=== PATIENT | female | born 1990 ===

== ENCOUNTER 2017-02-06 17:37 | Inpatient (IN) ==
[2017-02-06] MEDS ORDERED: MEPERIDINE 50 MG/1 ML VIAL IV PRN (18:07)
[2017-02-06] MEDS ORDERED: ONDANSETRON 4 MG/2 ML VIAL IV PRN ×2 (18:07→22:57)
[2017-02-06] MEDS ORDERED: LACTATED RINGERS 500 ML IV PRN (18:07)
[2017-02-06] MEDS ORDERED: BUTORPHANOL 2 MG/ML VIAL IV PRN (18:07)
[2017-02-06] MEDS ORDERED: AMPICILLIN INJ 2,000 MG in SODIUM CHLORIDE 0.9% 100 ML IV ONE (18:11)
[2017-02-06] MEDS ORDERED: AMPICILLIN 2,000 MG VIAL ONE (18:11)
[2017-02-06] MEDS ORDERED: SODIUM CHLORIDE 0.9% 100 ML IV ONE (18:11)
[2017-02-06] MEDS: LACTATED RINGERS 1,000 ML IV SCH ×2 (18:11→18:39)
[2017-02-06] MEDS ORDERED: ePHEDrine 50 MG/ML AMP IV PRN (18:19)
[2017-02-06] MEDS ORDERED: diphenhydrAMINE 50 MG/1 ML VIAL IV PRN (18:19)
[2017-02-06] MEDS ORDERED: fentaNYL 2 MCG/ROPIV 0.2% EPID 150 ML EPIDURAL SCH (18:19)
[2017-02-06] MEDS ORDERED: PROMETHAZINE 25 MG/1 ML VIAL IM ONE (18:19)
[2017-02-06] MEDS ORDERED: CITRIC ACID/SODIUM CITRATE 30 ML UDCUP PO ONE (18:19)
[2017-02-06] MEDS ORDERED: FAMOTIDINE 20 MG/2 ML VIAL IV ONE (18:19)
[2017-02-06] MEDS ORDERED: hydrOXYzine HCL 25 MG/1 ML VIAL IM PRN (18:19)
[2017-02-06 18:37] LABS: Basophils % 0.3 % (0.0-0.8); Eosinophils # 0.1 10*3/uL (0.0-0.87); Eosinophils % 0.8 % (0.00-10.9); Hematocrit 27.3 VOL% (35.7-47.0); Hemoglobin 8.1 GM/DL (12.0-16.0); Immature Granulocytes % 0.3 %; Immature Granulocytes Absolute 0.02 #; Lymphocytes # 2.3 10*3/uL (1.4-4.0); Lymphocytes % 31.4 % (21.3-54.2); Mean Corpuscular HGB Conc 29.7 GM/DL (32-36); Mean Corpuscular Hemoglobin 18 PG (27-34); Mean Corpuscular Volume 61.8 FL (87-102); Mean Platelet Volume 9.6 FL (9.6-12.0); Monocytes # 0.4 10*3/uL (0.11-0.8); Monocytes % 5.6 % (1.7-12.7); Neutrophils # 4.4 10*3/uL (1.4-7.4); Neutrophils % 61.6 % (38.7-73.9); Platelet Count 268 T/CUMM (130-400); Red Blood Count 4.42 MC/CUMM (3.8-5.5); Red Cell Distribution Width 16.1 % (9.3-17.3); White Blood Count 7.2 T/CUMM (4-12)
[2017-02-06 18:42] LABS: Apearance,Urine CLEAR (Clear); Bilirubin,Urine Negative (Negative); Blood, Urine Small mg/dL (Negative); Glucose,Urine (UA) Negative (Negative); Ketones,Urine Negative (Negative); Mucus,Urine Occasional /LPF (Occasional); Nitrite,Urine Negative (Negative); Protein,Urine Negative; RBC,Urine 1 /HPF (0-4); Squamous Epithelial Cell,Urine Occasional /HPF (0-10); Urine Color Yellow (Yellow); Urine Specific Gravity 1.024 (1.001-1.035); WBC,Urine <1 /HPF (0-6)
[2017-02-06 18:56] LABS: Alanine Aminotransferase 13 U/L (13-56); Albumin 2.9 G/DL (3.4-5.0); Alkaline Phosphatase 210 U/L (45-117); Aspartate Amino Transferase 18 U/L (0-37); Bilirubin,Total < 0.39 MG/DL (0.2-1.0); Blood Urea Nitrogen 16 MG/DL (7-18); Calcium 8.4 MG/DL (8.5-10.1); Glucose 70 MG/DL (74-106); Osmolality,Calculated 275.5 MOS/KG (273-304); Potassium 4.1 MMOL/L (3.5-5.1); Sodium 139 MMOL/L (136-145); Total Protein 7.1 G/DL (6.4-8.3); Uric Acid 4.5 MG/DL (2.6-6.0)
[2017-02-06] MEDS ORDERED: OXYTOCIN/LR 30 UNIT/1,000 ML BAG IV ONE (22:11)
[2017-02-06] MEDS ORDERED: OXYTOCIN 10 UNIT/ML VIAL ONE (22:27)
[2017-02-06] MEDS ORDERED: AMPICILLIN INJ 1,000 MG in SODIUM CHLORIDE 0.9% 100 ML IV SCH (22:30)
--- NOTE | 2017-02-06 22:54 | OB/GYN History & Physical ---
History of Present Illness Chief complaint: Active labor, EDC is 03/08/2017 at 35 weeks and 5 days. History of present illness: Ms. Haq is a 26 year old female 26-year-old 3 para 2 EDC is 03/08/2017 presented to labor and delivery approximately 6 cm dilated 90% effaced and -2 station. Fetus is very active heart tones are category 1. Abdomen is soft occasional uterine contractions. Patient will be admitted routine labs be also drawn epidural also be administered when appropriate. Home Medications Medication Instructions Recorded Confirmed Type No Known Home Medications [No 02/06/17 02/06/17 History Known Home Medications] Allergies Allergy/AdvReac Type Severity Reaction Status Date / Time No Known Allergies Allergy Verified 07/27/15 10:45 Medical,Surgical,& Family Hx - Medical History Psychological: No history of: Anxiety Disorders Neurology: No history of: Brain Aneurysm, Cerebral Hemorrhage, Cerebrovascular Accident , Cerebral Palsy, Dementia, Migraine, Multiple Sclerosis, Parkinson's Disease, Peripheral Neuropathy, Seizures, TIA, Vertigo, Neurologocal Cancer Rheumatology: No history of;: Fibromyalgia, Gout, Myasthenia Gravis, Rheumatoid Arthritis, Rheumatological Problems Respiratory: No history of: Asthma, Bronchitis, COPD, Intubation, Obstructive Sleep Apnea , Pulmonary Embolism, Pulmonary Hypertension, Pneumonia, Lung Cancer, Respiratory Problems Musculoskeletal: No history of: Amputation, Back/Neck Problems, Degenerative Disk Disease, Herniated Disk, Osteoporosis, Musculoskeletal Cancer, Musculoskeletal Problems Reproductive: No history of: Ectopic , Complication Other: No history of: Anesthesia Reactions - Surgical History Cardiac Surgeries: Patient Denies: Cardiac Catheterization Thoracic Surgeries: Patient denies;: Organ Transplant, Lobectomy Neurologic Surgeries: Patient denies: Brain Aneurysm, Cerebral Hemorrhage, Neurologic Surgery HEENT Surgeries: Patient denies: Thyroid Surgery, Tonsilectomy & Adenoidectomy Abdominal Surgeries: Patient denies: Abdominal Surgery, Appendectomy, Cholecystectomy, Colonoscopy , Gastric Bypass Surgery, EGD, Hernia Repair Reproductive Surgeries: Patient denies;: Breast Surgery, Section, Genitourinary Surgery, Gynecologic Surgery Orthopedic Surgeries: Patient denies;: Implanted Devices, Orthopedic Surgery, Spinal Surgery, Total Hip Replacement, Total Knee Replacement - Family History Family History: Reports;: Family Diabetes Denies;: Family Anesthesia Reaction, Family Cancer, Family Heart Disease, Family Hypertension, Family Psychiatric Problems, Family Stroke - Social History Smoking Status: Never smoker Frequency of Alcohol Use: None 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 - Constitutional Vitals: Vital Signs Temp Pulse Resp BP 02/06/17 20:00 98.1 F 73 17 105/59 General appearance: no acute distress - Antepartum / Post Antepartum Exam Cervix - Dilatation: 5-6 cm - Head Head exam: Present: normal inspection - Eye Eye exam: Present: EOMI Pupils: Present: VIVI - ENT ENT exam: Present: normal exam - Neck Neck exam: Present: normal inspection - Respiratory Respiratory exam: Present: clear to auscultation bilaterally - Breast Breasts: as per HPI Menstruation: as per HPI - Cardiovascular Cardiovascular exam: Present: regular rate and rhythm - GI/Abdominal GI/Abdominal exam: Present: normal bowel sounds - Extremities Exam Extremities exam: Present: normal inspection - Back Exam Back exam: Present: normal inspection - Neurological Exam Neurological exam: Present: alert, oriented X3 - Psychiatric Psychiatric exam: Present: normal affect - Skin Skin exam: Present: normal color Assessment and Plan (1) Active labor at term Status: Acute Assessment and plan: Anticipate , prematurity, 36 weeks. Current Visit: No Results - Labs CBC & BMP: 02/06/17 18:15 02/06/17 18:15
[2017-02-06] MEDS ORDERED: LANOLIN 50% CREAM 0.3 OZ TUBE TOP PRN (22:57)
[2017-02-06] MEDS ORDERED: WITCH HAZEL PADS 100/JAR TOP PRN (22:57)
[2017-02-06] MEDS ORDERED: MEASLES/MUMPS/RUBELLA VACCINE 0.5 ML VIAL SUBCUT ONE (22:57)
[2017-02-06] MEDS ORDERED: IBUPROFEN 800 MG TABLET PO PRN (22:57)
[2017-02-06] MEDS ORDERED: HYDROCORTISONE 2.5% RECTAL CREAM 30 GM TUBE TOP PRN (22:57)
[2017-02-06] MEDS ORDERED: BISACODYL 10 MG SUPP RECTAL PRN (22:57)
[2017-02-06] MEDS ORDERED: DIPH/TET/ACEL PERT BOOSTER VACCINE 0.5 ML VIAL IM ONE (22:57)
[2017-02-06] MEDS ORDERED: RHO(D) IMMUNE GLOBULIN 300 MCG SYRINGE IM ONE (22:57)
[2017-02-06] MEDS ORDERED: ACETAMINOPHEN 325 MG TABLET PO PRN (22:57)
[2017-02-06] MEDS ORDERED: OXYTOCIN/LR 20 UNIT/1,000 ML BAG IV ONE (22:57)
[2017-02-06] MEDS ORDERED: BENZOCAINE 20%/MENTHOL 0.5% SPRAY 56 GM CAN TOP PRN (22:57)
[2017-02-06] MEDS ORDERED: oxyCODONE/ACETAMINOPHEN 5-325 MG TABLET PO PRN ×2 (22:57)
--- NOTE | 2017-02-06 22:57 | Event Note ---
Delivery note Stage I Active labor admitted at 6 cm dilated Epidural anesthetic Spontaneous rupture membranes heart tones category 1 Beta strep positive IV ampicillin Stage II Spontaneous delivery Female infant weight 6 pounds Delivery time was 2239 pm Apgars were 7 and 9 Cord blood and cord gas obtained Stage III Spontaneous delivery of the placenta No lacerations noted Blood loss was 250 3 cord vessels Mother stable
[2017-02-06 23:09] LABS: Cord Arterial Blood HCO3 21.7 MMOL/L
[2017-02-06 23:10] LABS: Cord Venous Blood HCO3 23.9 MMOL/L; Cord Venous Blood PCO2 40.7 MMHG; Cord Venous Blood PO2 32.1 MMHG
[2017-02-07 06:41] LABS: Basophils % 0.2 % (0.0-0.8); Eosinophils % 0.4 % (0.00-10.9); Hematocrit 26.3 VOL% (35.7-47.0); Hemoglobin 7.8 GM/DL (12.0-16.0); Immature Granulocytes % 0.3 %; Immature Granulocytes Absolute 0.03 #; Lymphocytes # 2.3 10*3/uL (1.4-4.0); Lymphocytes % 24.5 % (21.3-54.2); Mean Corpuscular HGB Conc 29.7 GM/DL (32-36); Mean Corpuscular Hemoglobin 18 PG (27-34); Mean Corpuscular Volume 61.3 FL (87-102); Mean Platelet Volume 9.9 FL (9.6-12.0); Monocytes # 0.5 10*3/uL (0.11-0.8); Monocytes % 5.5 % (1.7-12.7); Neutrophils # 6.6 10*3/uL (1.4-7.4); Neutrophils % 69.1 % (38.7-73.9); Platelet Count 194 T/CUMM (130-400); Red Blood Count 4.29 MC/CUMM (3.8-5.5); White Blood Count 9.5 T/CUMM (4-12)
--- NOTE | 2017-02-07 07:07 | Anesthesia Post-Op ---
Anesthesia Post OP - Post Ansesthetic Evaluation Patient seen in post op: Yes Resp: within normal limits CV: within normal limits Mental: within normal limits Temp: within normal limits [id number]: within normal limits Nausea and Vomiting: within normal limits Pain: within normal limits
[2017-02-07] MEDS: DOCUSATE SODIUM 100 MG CAPSULE PO SCH ×2 (08:41→20:58)
[2017-02-07] MEDS: FERROUS SULFATE 325 MG TABLET PO SCH ×3 (08:41→20:58)
--- NOTE | 2017-02-07 14:52 | OB/GYN Progress Note ---
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 Bonding well with infant. 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 - Constitutional Vitals: Vital Signs Temp Pulse Resp BP Pulse Ox 02/07/17 11:32 98.2 F 71 20 91/54 98 02/07/17 07:27 97.1 F L 58 L 18 134/74 98 02/07/17 06:00 18 02/07/17 03:15 97.6 F 70 18 93/61 98 02/07/17 02:15 65 18 115/62 02/07/17 01:15 63 18 120/80 02/07/17 00:45 62 18 119/68 02/07/17 00:15 97.3 F L 54 L 20 117/83 98 02/07/17 00:00 97.7 F 60 16 149/57 02/06/17 20:00 98.1 F 73 17 105/59 General appearance: no acute distress - Antepartum / Post Post Exam Breast: bilateral: normal Abdomen obstetrics: Present: bowel sounds normal Vagina: Present: discharge (Light lochia rubra) Uterus exam: Present: enlarged (Fundus firm midline) Anus/Rectum: Present: normal perianal skin - Respiratory Respiratory exam: Present: clear to auscultation bilaterally - Cardiovascular Cardiovascular exam: Present: regular rate and rhythm - GI/Abdominal GI/Abdominal exam: Present: normal bowel sounds, soft - Extremities Exam Extremities exam: Present: normal inspection - Neurological Exam Neurological exam: Present: alert, oriented X3 - Psychiatric Psychiatric exam: Present: normal affect, normal mood - Skin Skin exam: Present: normal color, warm Results - Labs CBC & BMP: 02/07/17 06:23 02/06/17 18:15
[2017-02-07 16:08] LABS: Hematocrit 23.3 VOL% (35.7-47.0); Hemoglobin 6.9 GM/DL (12.0-16.0)
[2017-02-07] MEDS ORDERED: SODIUM CHLORIDE 0.9% 250 ML IV PRN (16:21)
[2017-02-08 06:42] LABS: Hematocrit 29.7 VOL% (35.7-47.0)
[2017-02-08 06:51] LABS: Hemoglobin 9.1 GM/DL (12.0-16.0)
[2017-02-08] MEDS: FERROUS SULFATE 325 MG TABLET PO SCH (08:46)
[2017-02-08] MEDS: DOCUSATE SODIUM 100 MG CAPSULE PO SCH (08:46)
--- NOTE | 2017-02-08 12:14 | Discharge Summary ---
Hospital Course - Hospital Course Hospital Course: Ms. Haq presented to the labor department in active labor. She subsequently delivered a viable infant with no complications. She is followed a normal course and she has done well. Her bleeding is minimal with no odor. Her hemoglobin was low however the patient did not wish to take blood at this time. She chose to do iron therapy. She denies any dizziness or shortness of breath. She is bonding well with her infant. Her bleeding is minimal with no odor. Her vital signs are stable. She will be discharged home prescriptions for pain, iron, and a follow-up appointment in our office. Diagnosis - Discharge Diagnosis (1) Active labor at term Status: Acute (2) Vaginal delivery Status: Acute Specialty Discharge - Follow Up or Referrals Follow up with: Genaro Carranza MD [Physician] - 03/22/17 10:00 am (6 WEEKS ) Discharge Plan - Discharge Data Disposition: Disch To Home/Self Care Condition at Discharge: Stable Discharge Diet: regular diet Activity: resume usual activities as tolerated Hygiene: may shower Weight Bearing at Discharge: weight bear as tolerated Driving: no restrictions Contact your physician if you experience:: fever over 101, pain uncontrolled by pain medications - Discharge Medications New Acetamin/Codeine 300-30 Tab [Tylenol/Codeine #3] 2 tablet PO Q4H PRN #30 tablet PRN Reason: Pain Mild To Moderate (1-7) Ferrous Sulfate Tab [Feosol Original Tab] 325 mg PO TID #90 tablet Ibuprofen Tab [Motrin Tab] 800 mg PO Q6H PRN #30 tablet PRN Reason: Pain Moderate (4-7) - Follow Up or Referral Follow Up: Genaro Carranza MD [Physician] - 03/22/17 10:00 am (6 WEEKS ) - Forms/Instructions Instructions: Perineal Care (DC), Vaginal Delivery (DC), Bleeding (DC) Exam - Constitutional Vitals: Period Temp Pulse Resp BP Sys/Sexton Pulse Ox Last 24 Hr 97 F-98.4 F 57-85 16-20 88-139/56-83 96-100 General appearance: no acute distress - Head Head exam: Present: normal inspection - Neck Neck exam: Present: normal inspection - Respiratory Respiratory exam: Present: clear to auscultation bilaterally - Cardiovascular Cardiovascular exam: Present: regular rate and rhythm - GI/Abdominal GI/Abdominal exam: Present: normal bowel sounds, soft - Extremities Exam Extremities exam: Present: normal inspection - Back Exam Back exam: Present: normal inspection - Neurological Exam Neurological exam: Present: alert, oriented X3 - Psychiatric Psychiatric exam: Present: normal affect, normal mood - Skin Skin exam: Present: normal color, warm Discharge Results Labs on day of discharge: Labs from last 24 hours 02/08/17 02/07/17 02/07/17 06:23 15:50 15:50 Hgb 9.1 L D 6.9 L Hct 29.7 L 23.3 L Blood Type O POSITIVE Antibody Screen Negative Crossmatch See Detail DS: Provider Date of admission: 02/06/17 22:58 Primary care physician: Jovanny Campbell MD Attending physician on admission: Genaro Carranza MD Consults: 02/06/17 18:07 Consult to Anesthesiology [CONS] Routine Consulting Provider: Reason for Anesthesiology: Epidural Consult Comment: Epidural for pain managment 02/06/17 22:58 Consult to Pig Sticker [CONS] Routine Consult Pig Sticker: Breast Feeding Discharging clinician: Cara Whitehead CNM Expected date of discharge: 02/08/17
[2017-02-08 12:49] VITALS: BP 117/69
== END 2017-02-08 14:00 | disposition home or self-care (01) | DRG 560 ==
LOC: N.LDOUT 17:37 → N.LD 17:41 → N.OB 02-07 00:30
PROVIDERS: ADMIT Obstetrics & Gynecology; ATTEND Obstetrics & Gynecology